=== PATIENT | male | born 1995 | race Two or more races ===

== ENCOUNTER 2016-09-27 03:33 | Emergency (ER) | payer MEDICAID ==
[~2016-09-27] VITALS: Ht 182.9 cm; Wt 70.8 kg
[~2016-09-27 03:33] MED LIST: AMOXICILLIN500 MG ORAL; CYCLOBENZAPRINE10 MG ORAL; FIORICET1 EA ORAL; KENALOG 0.025%15 GM APPLIC; NKM; ONDANSETRON ODT4 MG ORAL; PRILOSEC20 MG ORAL; RANITIDINE HCL150 MG ORAL; TYLENOL EXTRA500 MG ORAL; TYLENOL325 MG ORAL; ZOFRAN4 MG ORAL
[2016-09-27] MEDS ORDERED: NKM (03:58)
[2016-09-27 04:00] VITALS: BP 128/75
[2016-09-27] MEDS ORDERED: AMOXICILLIN500 MG ORAL (04:15)
--- NOTE | 2016-09-27 04:19 | Emergency Room Report ---
History of Present Illness General Chief Complaint: Sore Throat Source: Patient Present Illness HPI Patient presents with complaints of sore throat Pain is worse with swallowing started 3 days ago rates the pain is 5/10 sharp pain Denies any fevers or chills denies any chest pain or short of breath Denies any difficulty swallowing denies any headache or visual changes denies any back or flank pain Denies any dysuria frequency denies any trauma Patient does not smoke Allergies: Coded Allergies: IBUPROFEN (Verified Allergy, Severe, SWELLING, 07/06/12) Patient History Past Medical History: see triage record Pertinent Family History: none Reviewed Nursing Documentation: PMH: Agreed, PSxH: Agreed Nursing Documentation-PMH Past Medical History: No Stated History Review of Systems All Other Systems: negative except mentioned in HPI Physical Exam Vital Signs Date Time Temp Pulse Resp B/P Pulse Ox O2 Delivery O2 Flow Rate FiO2 09/27/16 03:55 98.2 63 14 125/73 98 Room Air Sp02 EP Interpretation: reviewed, normal General Appearance: well appearing, no apparent distress Head: normocephalic, atraumatic Eyes: bilateral eye EOMI, bilateral eye PERRL ENT: hearing grossly normal, TMs + canals normal, uvula midline, pharyngeal erythema Neck: full range of motion, supple, no meningismus, no bony tend Respiratory: lungs clear, normal breath sounds, no rhonchi, no respiratory distress, no retraction, no accessory muscle use Cardiovascular #1: normal peripheral pulses, regular rate, rhythm, no edema, no gallop, no JVD, no murmur Gastrointestinal: normal bowel sounds, non tender, soft, no mass, no organomegaly, non-distended, no guarding, no hernia, no pulsatile mass, no rebound Musculoskeletal: normal inspection Neurologic: oriented x3, responsive, data technical lead III-XII nml as tested, motor strength/ tone normal, sensory intact Psychiatric: mood/affect normal Skin: normal color, no rash, warm/dry, palpation normal Lymphatic: normal inspection, no adenopathy Medical Decision Making Diagnostic Impression: Primary Impression: Sore throat Additional Impression: Pharyngitis ER Course Patient's findings appear to be likely in line with a viral pharyngitis However the patient is asking for antibiotics I did talk to him regarding a prescription the pain does continue patient will initiate antibiotic coverage at that time Otherwise this time stable for close outpatient followup No signs of any peritonsillar or retropharyngeal abscess on clinical evaluation Last Vital Signs Date Time Temp Pulse Resp B/P Pulse Ox O2 Delivery O2 Flow Rate FiO2 09/27/16 03:55 98.2 63 14 125/73 98 Room Air Status: unchanged Disposition: HOME, SELF-CARE Condition: Stable Scripts Amoxicillin* (AMOXIL*) 500 Mg Capsule 500 MG ORAL THREE TIMES A DAY, #21 CAP Prov: ARTIE PINZON D.O. 09/27/16 Referrals: [facility],REFERRING (PCP) Patient Instructions: Pharyngitis Additional Instructions: Patient is provided with the discharge instructions notified to follow up with primary doctor in the next 2-3 days otherwise return to the er with any worsening symptoms. ARTIE PINZON D.O. Sep 27, 2016 04:19
[2016-09-27 04:35] VITALS: BP 130/76
== END 2016-09-27 04:35 | disposition home or self-care (01) ==
LOC: EMR 04:07
DX: J02.9 Acute pharyngitis, unspecified (principal); Z88.6 Allergy status to analgesic agent
CPT/HCPCS: 99283

== ENCOUNTER 2019-02-14 23:30 | Emergency (ER) | payer MEDICAID ==
[~2019-02-14] VITALS: Ht 182.9 cm; Wt 71.7 kg
--- NOTE | 2019-02-14 23:41 | NUR ---
ED Nurse Note: Patient walked into ED c/o stiff neck and "pressure" around his head that happened about 30 minutes ago, denies any loss of vision.nPt is AO x 4times, VSS, on room air no distress. ERMD seen Pt at bedside.
[2019-02-14 23:59] VITALS: BP 138/82
[2019-02-15 00:14] VITALS: BP 138/82
--- NOTE | 2019-02-15 00:15 | NUR ---
ER DISCHARGE NOTE: Patient is cleared to be discharged per ERMD, pt is aox4, on room air, with stable vital signs. pt was given dc and prescription instructions, pt was able to verbalize understanding, pt id band removed without complications. pt is able to ambulate with steady gait. pt took all belongings.
--- NOTE | 2019-02-15 00:38 | Emergency Room Report ---
History of Present Illness General Chief Complaint: Headache Source: Patient Present Illness HPI Patient present with complaints of pain to the occipital region top part of the neck moving upward and wrapping around bilateral temporal area to the forehead This happened about an hour prior to arrival she reports that he was coming out of the shower when this happened Denies any visual changes denies any focal weakness denies any vomiting or diarrhea Denies any recent trauma and feels that he is already improved from initial presentation Allergies: Coded Allergies: IBUPROFEN (Verified Allergy, Severe, SWELLING, 07/06/12) Patient History Past Medical History: see triage record Pertinent Family History: none Reviewed Nursing Documentation: PMH: Agreed; PSxH: Agreed Nursing Documentation-PMH Past Medical History: No Stated History Review of Systems All Other Systems: negative except mentioned in HPI Physical Exam Vital Signs Date Time Temp Pulse Resp B/P (MAP) Pulse Ox O2 Delivery O2 Flow Rate FiO2 02/14/19 23:33 98.2 61 18 131/78 (95) 98 Room Air Sp02 EP Interpretation: reviewed, normal General Appearance: well appearing, no apparent distress Head: normocephalic, atraumatic Eyes: bilateral eye PERRL, bilateral eye EOMI ENT: hearing grossly normal, normal pharynx, TMs + canals normal, uvula midline Neck: full range of motion, supple, no meningismus, no bony tend Respiratory: lungs clear, normal breath sounds, no rhonchi, no respiratory distress, no retraction, no accessory muscle use Cardiovascular #1: normal peripheral pulses, regular rate, rhythm, no edema, no gallop, no JVD, no murmur Gastrointestinal: normal bowel sounds, non tender, soft, no mass, no organomegaly, non-distended, no guarding, no hernia, no pulsatile mass, no rebound Genitourinary: no CVA tenderness Musculoskeletal: normal inspection Neurologic: oriented x3, responsive, graphics specialist III-XII nml as tested, motor strength/ tone normal, sensory intact Psychiatric: mood/affect normal Skin: normal color, no rash, warm/dry, palpation normal Lymphatic: normal inspection, no adenopathy Medical Decision Making Diagnostic Impression: Primary Impression: Headache ER Course Multiple differentials and consideration including but not limited to intracranial, neurologic, neurosurgical musculoskeletal pathology Patient has a benign neurological exam He has had 2 different CAT scans in the past At this time feels improved my suspicion for meningitis is low Patient is hemodynamically stable and given the appropriate neurological exam is appropriate for close follow-up, , Last Vital Signs Date Time Temp Pulse Resp B/P (MAP) Pulse Ox O2 Delivery O2 Flow Rate FiO2 02/15/19 00:14 97.6 79 18 138/82 98 Room Air Status: improved Disposition: HOME, SELF-CARE Condition: Improved Referrals: [facility] Karina Page [facility] Patient Instructions: Tension Headache Additional Instructions: Patient is provided with the discharge instructions notified to follow up with primary doctor in the next 2-3 days otherwise return to the er with any worsening symptoms. Please note that this report is being documented using [employer] technology. This can lead to erroneous entry secondary to incorrect interpretation by the dictating instrument. Stalin Herrera DO February 15, 2019 00:38
== END 2019-02-15 00:30 | disposition home or self-care (01) ==
LOC: EMR 23:52
DX: R51 Headache (principal); Z88.6 Allergy status to analgesic agent
CPT/HCPCS: 99282

== ENCOUNTER 2019-04-02 03:38 | Emergency (ER) | payer MEDICAID ==
[~2019-04-02] VITALS: Ht 182.9 cm; Wt 72.6 kg
--- NOTE | 2019-04-02 03:46 | NUR ---
ED Nurse Note: PATIENT AMBULATED TO ED WITH SORETHROAT AND COUGH X 1 MONTH. Pt is AO x 4times, VSS, on room air no distress.
[2019-04-02 03:47] VITALS: BP 128/82
[2019-04-02 03:53] VITALS: BP 128/82
[2019-04-02] MEDS ORDERED: AMOXICILLIN500 MG ORAL (03:54)
[2019-04-02] MEDS ORDERED: PROMETHAZINE-C118 M1 ORAL (03:54)
--- NOTE | 2019-04-02 05:08 | Emergency Room Report ---
History of Present Illness General Chief Complaint: Sore Throat Source: Patient Present Illness HPI 23-year-old male presents ED for evaluation. Planing of sore throat and cough x1 month. States he has had a persistent cough for the last month productive with yellowish phlegm. States he is tried multiple [id number] medications without relief. Worse at night. Denies fevers or chills. Admits to smoking marijuana occasionally. Also notes a sore throat. Dull, 5 out of 10 , nonradiating. Denies sick contacts or recent travel. no other aggravating relieving factors. Denies any other associated symptoms Allergies: Coded Allergies: IBUPROFEN (Verified Allergy, Severe, SWELLING, 07/06/12) Patient History Past Medical History: none Past Surgical History: none Pertinent Family History: none Social History: Denies: smoking, alcohol use, drug use Reviewed Nursing Documentation: PMH: Agreed; PSxH: Agreed Nursing Documentation-PMH Past Medical History: No Stated History Review of Systems All Other Systems: negative except mentioned in HPI Physical Exam Vital Signs Date Time Temp Pulse Resp B/P (MAP) Pulse Ox O2 Delivery O2 Flow Rate FiO2 04/02/19 03:39 98.6 81 14 130/87 (101) 98 Room Air Sp02 EP Interpretation: reviewed, normal General Appearance: no apparent distress, alert, GCS 15, non-toxic Head: normocephalic, atraumatic Eyes: bilateral eye normal inspection, bilateral eye PERRL ENT: hearing grossly normal, normal pharynx, no angioedema, normal voice Neck: full range of motion, supple/symm/no masses Respiratory: chest non-tender, lungs clear, normal breath sounds, speaking full sentences Cardiovascular #1: regular rate, rhythm, no edema Cardiovascular #2: 2+ carotid (R), 2+ carotid (L), 2+ radial (R), 2+ radial (L) , 2+ dorsalis pedis (R), 2+ dorsalis pedis (L) Gastrointestinal: normal bowel sounds, non tender, soft, non-distended, no guarding, no rebound Rectal: deferred Genitourinary: normal inspection, no CVA tenderness Musculoskeletal: back normal, gait/station normal, normal range of motion, non- tender Neurologic: alert, oriented x3, responsive, motor strength/tone normal, sensory intact, speech normal Psychiatric: judgement/insight normal, memory normal, mood/affect normal, no suicidal/homicidal ideation Reflexes: 3+ bicep (R), 3+ bicep (L), 3+ tricep (R), 3+ tricep (L), 3+ knee (R) , 3+ knee (L) Lymphatic: no adenopathy Medical Decision Making Diagnostic Impression: Primary Impression: Atypical pneumonia ER Course Hospital Course 23-year-old male presents ED complaining of cough x1 month Differential diagnoses include: URI, pharyngitis, otitis media, asthma Clinical course Patient placed on stretcher. After initial history, physical exam reveals a male in no acute distress. Bilateral TM unremarkable. No pharyngeal erythema. No tonsillar exudates. No lymphadenopathy. lungs clear. abdomen soft. In persistence of symptoms we will treat as atypical pneumonia and prescribed antibiotics and cough medication. Safe for discharge for close outpatient follow-up. States he has a PMD Diagnosis - atypical pneumonia Stable and discharged home with Rx amoxicillin, promethzine/codeine. Instructed to followup with PMD. Return to ED if symptoms recur or worsen Last Vital Signs Date Time Temp Pulse Resp B/P (MAP) Pulse Ox O2 Delivery O2 Flow Rate FiO2 04/02/19 03:53 98.3 82 18 128/82 98 Room Air Status: improved Disposition: HOME, SELF-CARE Condition: Stable Scripts Codeine/Promethazine Hcl* (PROMETHAZINE-CODEINE SYRUP*) 118 Ml Syrup 5 ML ORAL Q6H PRN for For Cough, #118 ML 0 Refills Prov: Farrukh Alvarez MD 04/02/19 Amoxicillin* (AMOXIL*) 500 Mg Capsule 500 MG ORAL THREE TIMES A DAY, #21 CAP Prov: Farrukh Alvarez MD 04/02/19 Referrals: [facility],REFERRING (PCP) Ramos Ruffin MD Patient Instructions: Community-Acquired Pneumonia, Adult, [facility] Farrukh Alvarez MD Apr 02, 2019 05:08
== END 2019-04-02 03:59 | disposition home or self-care (01) ==
LOC: EMR 03:59
DX: J18.9 Pneumonia, unspecified organism (principal); R05 Cough; Z88.6 Allergy status to analgesic agent
CPT/HCPCS: 99282

== ENCOUNTER 2019-04-20 21:38 | Emergency (ER) | payer MEDICAID ==
[~2019-04-20] VITALS: Ht 182.9 cm; Wt 71.2 kg
[~2019-04-20 21:38] MED LIST changes: +PROMETHAZINE-C118 M1 ORAL
[2019-04-20 21:45] VITALS: BP 132/80
--- NOTE | 2019-04-20 21:45 | NUR ---
ED Nurse Note: pt walked in c/o lower abd pain radiating to right side back and upper abd, pt reports he has problem with urination x 2-3days.
[2019-04-20 22:13] LABS: APPEARANCE,URINE CLEAR; BILIRUBIN, URINE NEGATIVE (NEGATIVE); COLOR,URINE PALE YELLOW; GLUCOSE, URINE (UA) NEGATIVE (NEGATIVE); KETONES,URINE NEGATIVE (NEGATIVE); LEUKOCYTE ESTERASE ,URINE NEGATIVE (NEGATIVE); NITRITE,URINE NEGATIVE (NEGATIVE); PH,URINE 6.5 (4.5-8.0); PROTEIN,URINE NEGATIVE (NEGATIVE); UROBILINOGEN,URINE NORMAL MG/DL (0.0-1.0)
[2019-04-20] MEDS ORDERED: TYLENOL EXTRA500 MG ORAL (22:47)
--- NOTE | 2019-04-20 22:51 | NUR ---
ER DISCHARGE NOTE: Patient is cleared to be discharged per ERMD, pt is aox4, on room air, with stable vital signs. pt was given dc and prescription instructions, pt was able to verbalize understanding, pt id bandremoved. pt is able to ambulate with steady gait. pt took all belongings.
--- NOTE | 2019-04-20 23:47 | Emergency Room Report ---
History of Present Illness General Chief Complaint: Abdominal Pain Source: Patient Present Illness HPI 23-year-old male presents ED for evaluation. Patient complaining of suprapubic pain and urinary frequency for the last 3 days. Pain is sharp, 5 out of 10, nonradiating. Denies any discharge. Denies any scrotal tenderness. Denies any nausea or vomiting. No other aggravating relieving factors. Denies any other associated symptoms Allergies: Coded Allergies: IBUPROFEN (Verified Allergy, Severe, SWELLING, 04/20/19) Patient History Past Medical History: none Past Surgical History: none Pertinent Family History: none Social History: Denies: smoking, alcohol use, drug use Immunizations: UTD Reviewed Nursing Documentation: PMH: Agreed Nursing Documentation-PMH Past Medical History: No Stated History Review of Systems All Other Systems: negative except mentioned in HPI Physical Exam Vital Signs Date Time Temp Pulse Resp B/P (MAP) Pulse Ox O2 Delivery O2 Flow Rate FiO2 04/20/19 21:40 98.4 52 18 132/80 (97) 98 Room Air Sp02 EP Interpretation: reviewed, normal General Appearance: no apparent distress, alert, GCS 15, non-toxic, thin Head: normocephalic, atraumatic Eyes: bilateral eye normal inspection, bilateral eye PERRL ENT: hearing grossly normal, normal pharynx, no angioedema, normal voice Neck: full range of motion, supple/symm/no masses Respiratory: chest non-tender, lungs clear, normal breath sounds, speaking full sentences Cardiovascular #1: regular rate, rhythm, no edema Cardiovascular #2: 2+ carotid (R), 2+ carotid (L), 2+ radial (R), 2+ radial (L) , 2+ dorsalis pedis (R), 2+ dorsalis pedis (L) Gastrointestinal: normal bowel sounds, soft, non-distended, no guarding, no rebound, tenderness - suprapubic Rectal: deferred Genitourinary: normal inspection, no CVA tenderness Musculoskeletal: back normal, gait/station normal, normal range of motion, non- tender Neurologic: alert, oriented x3, responsive, motor strength/tone normal, sensory intact, speech normal Psychiatric: judgement/insight normal, memory normal, mood/affect normal, no suicidal/homicidal ideation Reflexes: 3+ bicep (R), 3+ bicep (L), 3+ tricep (R), 3+ tricep (L), 3+ knee (R) , 3+ knee (L) Lymphatic: no adenopathy Medical Decision Making Diagnostic Impression: Primary Impression: Suprapubic pain ER Course Hospital Course 23 yo M presents to ED with suprapubic pain, frequent urinations Differential diagnoses include: UTI, cystitis, pyelonephritis Clinical course Patient placed on stretcher. After initial history and physical I ordered UA UA noted to be unremarkable. Discussed findings with patient. Abdomen soft with no guarding or rebound. No scrotal tenderness. I reviewed EMR and patient had been here previously for similar presentation a few times. Her work-up included labs and CT which was unremarkable. Second visit patient had a UA and states that symptoms ultimately resolved. I discussed option for labs and CT today but patient declined. I believe there is an anxiety component contributing to patient's symptoms. Patient agrees. Notes that his previous times with similar pain it did resolve on its own. Will discharge to home at this time. Will provide urology referral. Diagnosis - suprapubic pain Stable and discharged home with prescriptions for Rx tylenol. Instructed to followup with urology. Return to ED if symptoms recur or worsen Labs Test 04/20/19 22:02 Urine Color Pale yellow Urine Appearance Clear Urine pH 6.5 (4.5-8.0) Urine Specific [place] 1.015 (1.005-1.035) Urine Protein Negative (NEGATIVE) Urine Glucose (UA) Negative (NEGATIVE) Urine Ketones Negative (NEGATIVE) Urine Blood Negative (NEGATIVE) Urine Nitrite Negative (NEGATIVE) Urine Bilirubin Negative (NEGATIVE) Urine Urobilinogen Normal MG/DL (0.0-1.0) Urine Leukocyte Esterase Negative (NEGATIVE) Last Vital Signs Date Time Temp Pulse Resp B/P (MAP) Pulse Ox O2 Delivery O2 Flow Rate FiO2 04/20/19 22:51 98.4 69 21 138/84 100 Room Air Status: improved Disposition: HOME, SELF-CARE Condition: Stable Scripts Acetaminophen* (TYLENOL EXTRA STRENGTH*) 500 Mg Tablet 500 MG ORAL Q8H PRN for Prn Headache/Temp > 101, #30 TAB 0 Refills Prov: Farrukh Alvarez MD 04/20/19 Referrals: Raymond Vargas MD NON PHYSICIAN (PCP) Patient Instructions: Urodynamic Testing Farrukh Alvarez MD Apr 20, 2019 23:47
== END 2019-04-20 22:51 | disposition home or self-care (01) ==
LOC: EMR 22:29
DX: R10.2 Pelvic and perineal pain (principal); R35.0 Frequency of micturition; Z88.6 Allergy status to analgesic agent
CPT/HCPCS: 81003; 99283